=== PATIENT | male | born 1990 | race African-American/Black ===

== ENCOUNTER 2017-03-21 12:26 | Inpatient (IN) | payer BC, OTHER ==
[~2017-03-21] VITALS: Ht 172.7 cm; Wt 59.0 kg
[~2017-03-21 12:26] MED LIST: BACTRIM DS TAB1 EACH PO; CIPROFLOXACIN500 M1 PO; FLOMAX0.4 MG PO; IBUPROFEN 800800 M1 PO; KETOCONAZOLE60 GM TP; NOHOMEMEDICATIONS; NORCO 5-325 TA1 EACH PO
[2017-03-21 13:03] VITALS: BP 119/79
[2017-03-21 13:34] LABS: HEMATOCRIT 47.7 % (42.0-52.0); HEMOGLOBIN 16.7 gm/dL (14.0-18.0); MCHC 35.1 g/dL (28.0-37.0); MCV 85.4 fL (80.0-100.0); PLATELET COUNT 106 thou/uL (150-400); RBC 5.59 mil/uL (4.50-6.00); RDW 13.4 % (10.5-14.5); WBC 2.3 thou/uL (4.0-11.0)
[2017-03-21 13:44] LABS: CALCIUM 9.2 mg/dL (8.5-10.1); CREATININE 1.4 mg/dL (0.7-1.3)
[2017-03-21 13:50] LABS: ALBUMIN 4.2 g/dL (3.4-5.0); POTASSIUM 2.8 mmol/L (3.5-5.1); TOTAL BILIRUBIN 0.9 mg/dL (<0.1-1.0); TOTAL PROTEIN 8.1 g/dL (6.4-8.2)
[2017-03-21 14:15] LABS: ABSOLUTE NEUTROPHILS 1.4 thou/uL (1.4-8.2); ATYPICAL LYMPHS 2 %; LARGE PLATELETS RARE
[2017-03-21 18:08] VITALS: BP 115/64
[2017-03-21 18:09] VITALS: BP 115/64
[2017-03-21 18:26] VITALS: BP 111/71
[2017-03-21 20:00] LABS: URINE BLOOD NEGATIVE (Negative); URINE CLARITY CLEAR; URINE COLOR YELLOW; URINE GLUCOSE-RANDOM* NEGATIVE (Negative); URINE KETONES 3+ (Negative); URINE LEUKOCYTES-REFLEX NEGATIVE (Negative); URINE NITRITE-REFLEX NEGATIVE (Negative); URINE PROTEIN (DIPSTICK) 1+ (Negative); URINE SPECIFIC GRAVITY 1.025 (1.005-1.035); URINE UROBILINOGEN 0.2 E.U./dl (0.2-1.0)
[2017-03-21 20:07] LABS: URINE BILIRUBIN NEGATIVE (Negative); URINE REDUCING SUBSTANCE NEGATIVE
[2017-03-21 20:09] LABS: CASTS None Seen /LPF (None Seen); CRYSTALS None Seen /LPF (None Seen); SQUAMOUS None Seen /LPF (0-3)
[2017-03-21 20:10] LABS: BACTERIA-REFLEX 1-9 Few /HPF (None Seen); URINE RBC None Seen /HPF (0-2); URINE WBC-REFLEX None Seen /HPF (0-5)
[2017-03-21 20:21] VITALS: BP 124/84
[2017-03-21 23:45] VITALS: BP 103/55
[2017-03-22 03:40] LABS: ABSOLUTE NEUTROPHILS 1.6 thou/uL (1.4-8.2); BASOPHILS 0.2 % (0.0-2.0); EOSINOPHILS 0.2 % (0.0-3.0); HEMATOCRIT 39.1 % (42.0-52.0); HEMOGLOBIN 13.7 gm/dL (14.0-18.0); LYMPHOCYTES 38.7 % (24.0-44.0); MCH 29.9 pg (26.0-34.0); MCHC 35.1 g/dL (28.0-37.0); MCV 85.2 fL (80.0-100.0); MONOCYTES 8.9 % (1.0-8.0); PLATELET COUNT 93 thou/uL (150-400); RBC 4.59 mil/uL (4.50-6.00); RDW 13.3 % (10.5-14.5)
[2017-03-22 04:00] VITALS: BP 103/48
[2017-03-22 04:18] LABS: CALCIUM 7.9 mg/dL (8.5-10.1); CREATININE 1.1 mg/dL (0.7-1.3); MAGNESIUM 1.8 mg/dL (1.8-2.4); POTASSIUM 3.4 mmol/L (3.5-5.1)
[2017-03-22 08:00] VITALS: BP 121/50
[2017-03-22 16:06] VITALS: BP 124/81
[2017-03-22 20:30] VITALS: BP 105/72
[2017-03-23 05:35] VITALS: BP 97/55
[2017-03-23 08:00] VITALS: BP 110/63
[2017-03-23] MEDS ORDERED: ZOFRAN ODT4 MG PO (09:36)
[2017-03-23 09:44] VITALS: BP 110/63
== END 2017-03-23 12:43 | disposition home or self-care (01) | DRG 918 ==
LOC: ER 12:26 → EROBS 14:46 → 4N 18:51
PROVIDERS: Emergency Medicine; Nurse Practitioner
DX: T40.7X1A Poisoning by cannabis (derivatives), accidental (unintentional), initial encounter (principal); N17.9 Acute kidney failure, unspecified; G43.909 Migraine, unspecified, not intractable, without status migrainosus; R11.2 Nausea with vomiting, unspecified; E87.6 Hypokalemia; F10.10 Alcohol abuse, uncomplicated; Z87.891 Personal history of nicotine dependence; Y92.89 Other specified places as the place of occurrence of the external cause
CPT/HCPCS: 10091